=== PATIENT | female | born 1995 | race Caucasian/White ===

== ENCOUNTER 2017-03-03 11:25 | Emergency (ER) | payer BC ==
[2017-03-03 12:44] VITALS: BP 120/69
[2017-03-03] MEDS ORDERED: Albuterol/Ipratropium NEB.SOL* Albuterol 2.5 MG/Ipratropium 0.5 MG 3 ML INH ONE (14:38)
--- NOTE | 2017-03-03 15:25 | ED ---
HPI Cardiac - HPI Summary HPI Summary: Pt here w/ URI sx x 1 week. Nasal congestion, - History of Current Complaint Chief Complaint: EDGeneral Stated Complaint: COUGHING/VOMITTING/SOB Time Seen by Provider: 03/03/17 14:02 Pain Intensity: 9 - Allergy/Home Medications Allergies/Adverse Reactions: Allergies Allergy/AdvReac Type Severity Reaction Status Date / Time Hydroxyzine Allergy Itching Verified 03/03/17 11:46 PMH/Surg Hx/FS Hx/Imm Hx Respiratory History: Denies: Hx Asthma, Hx Chronic Obstructive Pulmonary Disease (COPD) Psychiatric History: Reports: Hx of Violent Episodes Against Others Denies: Hx Eating Disorder Infectious Disease History: No Infectious Disease History: Denies: Traveled Outside the [place] in Last 30 Days - Social History Alcohol Use: None Substance Use Type: Reports: None Smoking Status (MU): Never Smoked Tobacco Physical Exam Vital Signs On Initial Exam: Initial Vitals Temp Pulse Resp BP Pulse Ox 97.6 F 86 20 129/71 98 03/03/17 11:36 03/03/17 11:36 03/03/17 11:36 03/03/17 11:36 03/03/17 11:36 Diagnostics - Vital Signs Vital Signs Temp Pulse Resp BP Pulse Ox 03/03/17 15:02 86 16 99 03/03/17 12:43 98.3 F 82 18 120/69 98 03/03/17 11:36 97.6 F 86 20 129/71 98 - Laboratory Lab Statement: Any lab studies that have been ordered have been reviewed, and results considered in the medical decision making process. Discharge - Discharge Plan Condition: Stable Disposition: HOME Prescriptions: Albuterol HFA INHALER* [Ventolin HFA Inhaler*] 2 puff INH Q6H PRN #1 mdi PRN Reason: Wheezing Patient Education Materials: Acute Bronchitis (ED) Referrals: No Primary Care Phys,NOPCP [Primary Care Provider] - Additional Instructions: You appear to have a viral URI leading to bronchitis. Quitting smoking will help reduce the length of illness and improve cough, wheezing. Please see education for more information on how to quit smoking. You may also try the following to reduce your symptoms and cough. Nasal wash (netti pot) & throat gargle 2 x day with 8 ounces of warm water + 1/ 4 teaspoon of salt Drink 60+ ounces of water daily Sleep 8+ hours per night Avoid Dairy and sugar Hot herbal/decaf tea with lemon & honey Chicken broth (preferably organic, free range chicken) Humidifier in house, but especially near bed at night Cough drops Delsym as needed for cough Try a facial steam with or without eucalyptus essential oil OR Marcel's vapor rub Consider taking Vitamin D3 5,000iu and Vitamin C 1,000mg every day during illness Follow-up with PCP if symptoms persist *If you develop shortness of breath, fever, chest pain, return to ED
== END 2017-03-03 15:37 | disposition home or self-care (01) ==
LOC: ED 11:25
DX: R09.81 Nasal congestion (principal)
CPT/HCPCS: 94640; A9270-GY